=== PATIENT | female | born 1970 | race Caucasian/White ===

== ENCOUNTER 2016-11-15 12:27 | Emergency (ER) | payer BC, MEDICAID ==
--- NOTE | 2016-11-15 12:37 | EDM.PDOC ---
ED HPI GENERAL MEDICAL PROBLEM - General Chief Complaint: Lower Extremity Injury/Pain Stated Complaint: [id number] CUT FOOT ON GLASS AT HOME Time Seen by Provider: 11/15/16 13:23 Source of Information: Reports: Patient, RN, RN Notes Reviewed History Limitations: Reports: No Limitations - History of Present Illness INITIAL COMMENTS - FREE TEXT/NARRATIVE: Patient stepped on glass last between 9:30 and 10:00 last night. She has a laceration on the bottom of her foot. No other injuries. Tetanus is greater than 10 years. Quality: Reports: Ache Severity: Moderate Improves with: Reports: None Worsens with: Reports: None Associated Symptoms: Reports: No Other Symptoms Left Feet Pain Score (Numeric/FACES): 4 - Related Data Allergies Allergy/AdvReac Type Severity Reaction Status Date / Time codeine Allergy Hallucinati Verified 11/15/16 13:09 ons Home Meds: Home Meds . [No Known Home Meds] 11/15/16 [History] Social & Family History - Family History Family Medical History: Noncontributory Review of Systems - Review of Systems Review Of Systems: ROS reveals no pertinent complaints other than HPI. ED EXAM, GENERAL - Physical Exam Exam: See Below Exam Limited By: No Limitations General Appearance: Alert, WD/WN, No Apparent Distress Respiratory/Chest: No Respiratory Distress Cardiovascular: Normal Peripheral Pulses Extremities: Other (1-8cm linear laceration to left plantar midfoot with small foreign body. ) Neurological: Alert, Oriented, CN II-XII Intact, Normal Cognition, Normal Gait, Normal Reflexes, No Motor/Sensory Deficits Psychiatric: Anxious Course - Vital Signs Last Recorded V/S: Last Vital Signs Temp 36.4 C 11/15/16 13:03 Pulse 65 11/15/16 13:03 Resp 16 11/15/16 13:03 BP 157/94 H 11/15/16 13:03 Pulse Ox 99 11/15/16 13:03 - Orders/Labs/Meds Meds: Medications Discontinued Medications Generic Name Dose Route Start Last Admin Trade Name Freq PRN Reason Stop Dose Admin Cephalexin 500 mg 11/15/16 13:22 11/15/16 13:57 Keflex PO 11/15/16 13:23 500 mg ONETIME ONE Administration Lidocaine HCl 30 ml 11/15/16 13:21 11/15/16 13:57 Xylocaine-Mpf 1% INJECT 11/15/16 13:22 30 ml ONETIME ONE Administration - Re-Assessments/Exams Free Text/Narrative Re-Assessment/Exam: 11/15/16 13:54 No procedural wound care. Foreign body removed left foot laceration. Departure - Departure Time of Disposition: 14:03 Disposition: Home, Self-Care 01 Condition: good Clinical Impression: Laceration of left foot Qualifiers: Encounter type: initial encounter Qualified Code(s): S91.312A - Laceration without foreign body, left foot, initial encounter - Discharge Information Instructions: Laceration Care, Adult, [id number] Forms: ED Department Discharge Additional Instructions: RX: Cephalexin 500mg. Bandage to laceration until healed. Limit time on feet, standing or walking. Follow up in clinic or ER if any signs of infection.
[2016-11-15 13:09] VITALS: BP 157/94
[2016-11-15] MEDS ORDERED: Lidocaine 1% 30 ML SDV INJECT ONE (13:21)
[2016-11-15] MEDS ORDERED: Cephalexin 500 MG Cap PO ONE (13:22)
== END 2016-11-15 14:20 | disposition home or self-care (01) ==
LOC: DL.ED 12:27
DX: S91.322A Laceration with foreign body, left foot, initial encounter (principal); W25.XXXA Contact with sharp glass, initial encounter; Z88.5 Allergy status to narcotic agent; Y92.009 Unspecified place in unspecified non-institutional (private) residence as the place of occurrence of the external cause
CPT/HCPCS: 99283; A9270

== ENCOUNTER 2018-11-09 16:12 | Emergency (ER) | payer MEDICAID ==
--- NOTE | 2018-11-09 16:37 | EDM.PDOC ---
"<Dana Darnell - Last Filed: 11/09/18 18:00> ED HPI GENERAL MEDICAL PROBLEM - General Stated Complaint: STROKE ? Time Seen by Provider: 11/09/18 16:30 Source of Information: Reports: Patient History Limitations: Reports: No Limitations - History of Present Illness INITIAL COMMENTS - FREE TEXT/NARRATIVE: Patient is a 48 year old female with significant history of CVA presenting with possible stroke. Patient states that she has been cleaning an old warm house for the past 8 hours. She was cleaning the floor and tried to get up when she felt sudden weakness in her knees and dizzy. She states that she couldn't keep her balance and almost passed out. Her niece who witnessed the incidence insisted she be taken to the ER immediately. Patient states she is feeling much better upon admission. She states she could be dehydrated as she has not had much to drink in regards to fluids. Denies headache, loss of consciousness, seizure, chest pain, shortness of breath, abdominal pain, slurred speech, loss of bowel or bladder function. - Related Data Allergies Allergy/AdvReac Type Severity Reaction Status Date / Time codeine Allergy Hallucinati Verified 11/09/18 16:40 ons Home Meds: Home Meds Sertraline [Zoloft] 25 mg PO DAILY 11/09/18 [History] Past Medical History HEENT History: Reports: None Cardiovascular History: Reports: None Respiratory History: Reports: None Gastrointestinal History: Reports: None Genitourinary History: Reports: None T[employer] COMPLIANCE AGENT History: Reports: None Musculoskeletal History: Reports: None Neurological History: Reports: CVA Psychiatric History: Reports: None Endocrine/Metabolic History: Reports: None Hematologic History: Reports: None Immunologic History: Reports: None Oncologic (Cancer) History: Reports: None Dermatologic History: Reports: None - Infectious Disease History Infectious Disease History: Reports: Chicken Pox - Past Surgical History Head Surgeries/Procedures: Reports: None Social & Family History - Family History Family Medical History: Noncontributory - Caffeine Use Caffeine Use: Reports: Coffee, Soda ED ROS GENERAL - Review of Systems Review Of Systems: ROS reveals no pertinent complaints other than HPI. ED EXAM, NEURO - Physical Exam Exam: See Below Exam Limited By: No Limitations General Appearance: Alert, WD/WN, No Apparent Distress, Anxious Eye Exam: Right Eye: Abnormal Pupil (constricted 1cm, nonreactive to light or accomidation ), Left Eye: Normal Inspection, PERRL, Bilateral Eye: EOMI Ears: Normal External Exam Nose: Normal Inspection Throat/Mouth: Normal Inspection, Normal Lips Head Exam: Atraumatic, Normocephalic Neck: Normal Inspection, Supple, Non-Tender, Full Range of Motion Respiratory/Chest: No Respiratory Distress, Lungs Clear, Normal Breath Sounds, No Accessory Muscle Use Cardiovascular: Normal Peripheral Pulses, Regular Rate, Rhythm, No Edema, No Murmur GI/Abdominal: Normal Bowel Sounds, Soft, Non-Tender Neurological: Alert, Normal Mood/Affect, Normal Dorsiflexion, CN II-XII Intact, Normal Plantar Flexion, Normal Gait, Normal Reflexes, No Motor/Sensory Deficits , Oriented x 3, Other (NIH Stroke scale of 0) Extremities: Normal Inspection, Normal Range of Motion Skin Exam: Warm, Dry, Normal Color EKG INTERPRETATION EKG Date: 11/09/18 Time: 16:36 Rhythm: NSR Rate (Beats/Min): 60 [place]: Normal P-Wave: Present QRS: Normal ST-T: Normal QT: Normal EKG Interpretation Comments: Normal Sinus Rhythm Course - Vital Signs Last Recorded V/S: Last Vital Signs Temp 97.4 F 11/09/18 17:02 Pulse 59 L 11/09/18 17:02 Resp 16 11/09/18 17:02 BP 155/92 H 11/09/18 17:02 Pulse Ox 100 11/09/18 17:02 - Orders/Labs/Meds Orders: Active Orders 24 hr Category Date Time Status EKG 12 Lead [EKG Documentation Completion] [RC] STAT Care 11/09/18 16:41 Active Head wo Cont [CT] Urgent Exams 11/09/18 16:19 Taken Sodium Chloride 0.9% [Normal Saline] 1,000 ml Med 11/09/18 17:00 Active IV ASDIRECTED Medication Orders Sodium Chloride (Normal Saline) 1,000 mls @ 999 mls/hr IV ASDIRECTED JACQUELYN Last Admin: 11/09/18 16:59 Dose: 999 mls/hr Labs: Laboratory Tests 11/09/18 11/09/18 11/09/18 Range/Units 16:18 16:26 16:26 WBC 10.5 H (5.0-10.0) 10^3/uL RBC 4.69 (4.2-5.4) 10^6/uL Hgb 15.0 (12.0-16.0) g/dL Hct 44.2 (37.0-47.0) % MCV 94.2 (80-100) fL MCH 32.0 (27.0-34.0) pg MCHC 33.9 (33.0-35.0) g/dL Plt Count 214 (150-450) 10^3/uL Neut % (Auto) 67.2 (42.2-75.2) % Lymph % (Auto) 21.6 (20.5-50.1) % [place] % (Auto) 8.7 H (2-8) % Eos % (Auto) 2.0 (1.0-3.0) % Baso % (Auto) 0.5 (0.0-1.0) % Sodium 136 (135-145) mmol/L Potassium 3.7 (3.6-5.0) mmol/L Chloride 106 (101-111) mmol/L Carbon Dioxide 22.0 (21.0-31.0) mmol/L Anion Gap 11.7 BUN 16 (7-18) mg/dL Creatinine 0.6 (0.6-1.3) mg/dL Est Cr Clr Drug Dosing TNP Estimated GFR (MDRD) > 60 BUN/Creatinine Ratio 26.66 Glucose 94 (74-105) mg/dL POC Glucose 104 (70-105) mg/dl Calcium 8.6 (8.4-10.2) mg/dl Total Bilirubin 0.6 (0.2-1.0) mg/dL AST 19 (10-42) IU/L ALT 17 (10-60) IU/L Alkaline Phosphatase 63 (42-121) IU/L Total Protein 6.6 L (6.7-8.2) g/dl Albumin 4.0 (3.2-5.5) g/dl Globulin 2.6 Albumin/Globulin Ratio 1.54 Urine Color (YELLOW) Urine Appearance (CLEAR) Urine pH (5.0-9.0) Ur Specific [place] (1.005-1.030) Urine Protein (NEGATIVE) Urine Glucose (UA) (NEGATIVE) Urine Ketones (NEGATIVE) Urine Occult Blood (NEGATIVE) Urine Nitrite (NEGATIVE) Urine Bilirubin (NEGATIVE) Urine Urobilinogen (0.2-1.0) mg/dL Ur Leukocyte Esterase (NEGATIVE) Urine RBC /HPF Urine WBC (0-5/HPF) /HPF Ur Epithelial Cells (NOT SEEN) /HPF Urine Bacteria (0-FEW/HPF) /HPF 11/09/18 Range/Units 17:15 WBC (5.0-10.0) 10^3/uL RBC (4.2-5.4) 10^6/uL Hgb (12.0-16.0) g/dL Hct (37.0-47.0) % MCV (80-100) fL MCH (27.0-34.0) pg MCHC (33.0-35.0) g/dL Plt Count (150-450) 10^3/uL Neut % (Auto) (42.2-75.2) % Lymph % (Auto) (20.5-50.1) % [place] % (Auto) (2-8) % Eos % (Auto) (1.0-3.0) % Baso % (Auto) (0.0-1.0) % Sodium (135-145) mmol/L Potassium (3.6-5.0) mmol/L Chloride (101-111) mmol/L Carbon Dioxide (21.0-31.0) mmol/L Anion Gap BUN (7-18) mg/dL Creatinine (0.6-1.3) mg/dL Est Cr Clr Drug Dosing Estimated GFR (MDRD) BUN/Creatinine Ratio Glucose (74-105) mg/dL POC Glucose (70-105) mg/dl Calcium (8.4-10.2) mg/dl Total Bilirubin (0.2-1.0) mg/dL AST (10-42) IU/L ALT (10-60) IU/L Alkaline Phosphatase (42-121) IU/L Total Protein (6.7-8.2) g/dl Albumin (3.2-5.5) g/dl Globulin Albumin/Globulin Ratio Urine Color Yellow (YELLOW) Urine Appearance Clear (CLEAR) Urine pH 5.5 (5.0-9.0) Ur Specific [place] 1.025 (1.005-1.030) Urine Protein Negative (NEGATIVE) Urine Glucose (UA) Negative (NEGATIVE) Urine Ketones Negative (NEGATIVE) Urine Occult Blood Negative (NEGATIVE) Urine Nitrite Negative (NEGATIVE) Urine Bilirubin Negative (NEGATIVE) Urine Urobilinogen 0.2 (0.2-1.0) mg/dL Ur Leukocyte Esterase Trace H (NEGATIVE) Urine RBC 0-5 /HPF Urine WBC 10-20 H (0-5/HPF) /HPF Ur Epithelial Cells Few (NOT SEEN) /HPF Urine Bacteria Few (0-FEW/HPF) /HPF Meds: Medications Generic Name Dose Route Start Last Admin Trade Name Freq PRN Reason Stop Dose Admin Sodium Chloride 1,000 mls @ 999 mls/hr 11/09/18 17:00 11/09/18 16:59 Normal Saline IV 999 mls/hr ASDIRECTED [facility] Administration - Re-Assessments/Exams Free Text/Narrative Re-Assessment/Exam: 11/09/18 16:59 16:45 repeat NIH scale of 0 Patient reports feeling much better. She is apologetic for getting scared and coming in. She was reassured that it was the right thing to do. Departure - Departure Time of Disposition: 17:52 Disposition: Home, Self-Care 01 Condition: Good Clinical Impression: Dehydration Heat exhaustion Qualifiers: Encounter type: initial encounter Qualified Code(s): T67.5XXA - Heat exhaustion , unspecified, initial encounter - Discharge Information *PRESCRIPTION DRUG MONITORING PROGRAM REVIEWED*: No *COPY OF PRESCRIPTION DRUG MONITORING REPORT IN PATIENT LUDIVINA: No Instructions: Heat Exhaustion Information, Near-Syncope, [id number], Dehydration, Adult, [id number], Rehydration, Adult, Syncope, Ggor-po-Gpid Care Plan Goals: 1. Patient is to stay out of the heat as much as possible. 2. Drink lots of ice water when outside or doing strenuous work. 3. Rest when possible. 4. Seek immediate medical care if concerning symptoms regarding possible stroke arises. <Joss Espinoza - Last Filed: 11/09/18 18:04> Course - Radiology Interpretation Free Text/Narrative:: [facility] - [facility] Final Radiology Report Call: [phone] assistance Online chat: [email or web address] Name: LALIT RENE Age: 48Years F Date: 11/09/2018 SSN: -- : [id number] Study: CT HEAD WO Requesting Physician: JOSS ESPINOZA Images: 139 Addl Studies: Provided Clinical History: hx of CVA Contrast: Without Contrast Medium: Contrast Amount: Contrast Method: Page 1 of 2 EXAM: CT Head Without Contrast EXAM DATE/TIME: 11/09/2018 4:24 PM CLINICAL HISTORY: 48 years old, female; Pain and signs and symptoms; Other: Possible stroke; Headache not specified; Additional info: HX of CVA TECHNIQUE: Imaging protocol: Axial computed tomography images of the head without contrast. Coronal and sagittal reformatted images were created and reviewed. Radiation optimization: All CT scans at this facility use at least one of these dose optimization techniques: automated exposure control; mA and/or kV adjustment per patient size (includes targeted exams where dose is matched to clinical indication); or iterative reconstruction. Other technique: STROKE PROTOCOL was implemented. COMPARISON: No relevant prior studies available. FINDINGS: Brain: Area of low attenuation present within the right temporal parietal lobe consistent with possible developing CVA. [place] Stroke Program Early CT Score (ASPECTS) = 9. No hemorrhage, mass effect or midline shift. Ventricles: Normal. No ventriculomegaly. Bones/joints: Unremarkable. No acute fracture. Sinuses: Visualized sinuses are unremarkable. No fluid levels. Mastoid air cells: Visualized mastoid air cells are well aerated. No mastoid effusion. Soft tissues: Unremarkable. LALIT RENE | Final Radiology Report CONFIDENTIALITY STATEMENT This report is intended only for use by the referring physician, and only in accordance with law. If you received this in error, call [phone]. Page 2 of 2 IMPRESSION: 1. Area of low attenuation present within the right temporal parietal lobe consistent with possible developing CVA. 2. [place] Stroke Program Early CT Score (ASPECTS) = 9. 3. No hemorrhage, mass effect or midline shift. Thank you for allowing us to participate in the care of your patient. Dictated and Authenticated by: Lior Jessica DO 11/09/2018 4:32 PM Central Time ([place] & [place])"
[2018-11-09 16:58] LABS: ANION GAP 11.7; CHLORIDE,CL 106 mmol/L (101-111); SODIUM,NA 136 mmol/L (135-145)
[2018-11-09] MEDS ORDERED: Sodium Chloride 0.9% 1,000 ML IV SCH (17:00)
[2018-11-09 17:06] VITALS: BP 155/92
== END 2018-11-09 18:09 | disposition home or self-care (01) ==
LOC: DL.ED 16:12
DX: T67.5XXA Heat exhaustion, unspecified, initial encounter (principal); E86.0 Dehydration; Z88.5 Allergy status to narcotic agent; Z79.899 Other long term (current) drug therapy
CPT/HCPCS: 36415; 70450; 80053; 81001; 82962; 85025; 93005; 96360; 99284-25; J7030